=== PATIENT | female | born 1965 | race Caucasian/White ===

== ENCOUNTER → 2016-07-26 | Outpatient (CLI) | payer BC ==
[~2016-07-26] MED LIST: LEVO75TA PO; WLLUNK PO
--- NOTE | 2016-07-26 15:21 | MAMMOGRAPHY REPORT ---
UNILATERAL RIGHT DIGITAL DIAGNOSTIC MAMMOGRAM TOMOSYNTHESIS WITH CAD AND TARGETED RIGHT ULTRASOUND: 07/26/2016 CLINICAL HISTORY: 51-year-old woman presents for follow-up in the right breast for an area of possib le architectural distortion seen in the lateral breast on the CC view that effaced with additional s upplemental imaging. She also presents for repeat evaluation of multiple benign-appearing cysts and , located cysts identified throughout the right breast on prior ultrasound. TECHNIQUE: Right breast CC and MLO GE digital and tomosynthesis images, spot magnification right CC and ML views were obtained. Current study was also evaluated with a Computer Aided Detection (CAD) s ystem. COMPARISON: Comparison is made to exams dated: 01/27/2016 mammogram, 01/14/2016 mammogram, 01/12/2015 m ammogram, 01/08/2014 mammogram, 04/25/2012 mammogram, and 09/10/2010 ultrasound - [facility]. BREAST COMPOSITION: There are scattered areas of fibroglandular density in the right breast. FINDINGS: There is no evidence of architectural distortion in the lateral right breast in the area o f possible architectural distortion seen on the 01/14/2016 screening mammogram. Currently, there is no new suspicious mass or focal area of architectural distortion. However, there are new grouped m icrocalcifications in the lower inner middle one third of the right breast, for which additional spo t magnification views were obtained. There is a small 2 mm grouping of smudgy or amorphous microcalcifications on the CC view that change shape and layer on the spot magnification ML view, confirming benign milk of calcium. A few other benign-appearing calcifications are scattered in the visualized right breast. In particular, there are stable microcalcifications projecting over the right pectoralis muscle on the MLO view. Real-time high resolution sonographic evaluation was performed throughout the right breast to reeval uate the probable fibrocystic changes identified on prior ultrasound. Numerous anechoic cysts are s cattered throughout the right breast. There are a few, located cysts versus benign appearing solid masses in the 1:00 right breast, measuring 4.0 mm. Another possible, located cyst versus benign-ridge earing solid masses identified in the 7:00 right breast, 2 cm from the nipple, measuring 2.7 mm. A hypoechoic cystic versus solid mass in the 9:00 right breast, 3 cm from the nipple measures 3.4 mm a nd has not significantly changed comparing to the 01/27/2016 ultrasound. A cyst with reticular inte rnal septations is again seen in the 11:00 right breast, 1 cm from the nipple, measuring 9.1 x 4.6 x 10.4 mm. These findings are compatible with benign fibrocystic changes. There is no evidence of a suspicious solid mass identified in the right breast on ultrasound. IMPRESSION: ACR BI-RADS CATEGORY 2: BENIGN, TARGETED ULTRASOUND ACR BI-RADS CATEGORY 2: BENIGN There is no persistent architectural distortion in the lateral right breast, confirming normal overl apping fibrolinear markings. No other suspicious mammographic or sonographic abnormality or evidenc e of malignancy is identified. There are benign fibrocystic changes seen throughout the right breas t on ultrasound. Return to annual mammogram screening schedule is recommended. The patient has bee n verbally notified of the results. Approximately 10% of breast cancers are not detected with mammography. A negative mammographic repor t should not delay biopsy if a clinically suggestive mass is present. Sridevi Mcdonough M.D. ay/:07/26/2016 11:34:42 Qa Reviewer: Macarena LOPEZ)(Sara), [facility] letter sent: Normal 1/2 BI-RADS Code: ACR BI-RADS Category 2: Benign Ultrasound BI-RADS: ACR BI-RADS Category 2: Benign
== END | disposition home or self-care (01) ==
LOC: C.MAMM 09:15
DX: R92.8 Other abnormal and inconclusive findings on diagnostic imaging of breast (principal); N60.01 Solitary cyst of right breast

== ENCOUNTER → 2017-01-09 | Outpatient (CLI) | payer BC ==
--- NOTE | 2017-01-09 12:42 | DIAGNOSTIC IMAGING REPORT ---
LEFT LOWER EXT JOINT WITHOUT CLINICAL HISTORY: 51 years-old Female presenting with LEFT KNEE PAIN along the medial aspect, pain for one to 2 months with no known injury, no history of cancer or prior surgery. TECHNIQUE: Multisequence, multiplanar MR imaging of the left knee was performed without the use of intravenous contrast. IV contrast: None. COMPARISON: None. FINDINGS: Localizer images: Unremarkable. Minimal bony edema along the anterior tibia in the intercondylar notch. Increased signal and minimal irregularity within the mid to posterior weightbearing portion of the articular cartilage of the medial femoral condyle suggesting grade 1 cartilage injury. Focal fissuring along the median prominence of the patellar articular cartilage extending less than 50% into the thickness consistent with grade 2 cartilage injury. Additionally, focal articular cartilage abnormality within the medial patellar facet measuring 4 to 5 mm in width and involving at least 50% thickness of the articular cartilage. Medial and lateral menisci intact, although bony edema is noted at the root of the medial meniscus. Anterior and posterior cruciate ligaments intact. Cystic change noted in the distal fibers of the anterior cruciate ligament. Medial collateral ligament intact although minimal increased signal intensity is noted both superficial and deep to the MCL. Lateral collateral ligament including the biceps femoris tendon, fibular collateral ligament, popliteal tendon, and iliotibial band intact. Small knee joint effusion. Trace popliteal cyst. Quadriceps and patellar tendons intact. IMPRESSION: 1. Bony edema at the anterior tibia at the intercondylar notch with associated cystic change in the distal fibers of the anterior cruciate ligament. This is compatible with degenerative change. No complete ACL tear. 2. Suggestion of grade 1 sprain of the MCL. 3. No meniscal tear is evident. 4. Small knee joint effusion. 5. Minimal cartilage injury at the mid to posterior weightbearing portion of the medial femoral condyle and more significant cartilage injury at the patella as described above. Electronically signed by: Don Rascon M.D. 01/09/2017 12:41 PM Dictated Date/Time: 01/09/2017 12:30 PM
== END | disposition home or self-care (01) ==
LOC: C.MRI 11:00
DX: M25.562 Pain in left knee (principal); M25.462 Effusion, left knee

== ENCOUNTER → 2017-01-17 | Outpatient (CLI) | payer BC ==
--- NOTE | 2017-01-18 07:56 | MAMMOGRAPHY REPORT ---
BILATERAL DIGITAL SCREENING MAMMOGRAM TOMOSYNTHESIS WITH CAD: 01/17/2017 CLINICAL HISTORY: Routine screening. Patient has no complaints. TECHNIQUE: Breast tomosynthesis in addition to standard 2D mammography was performed. Current study was also evaluated with a Computer Aided Detection (CAD) system. COMPARISON: Comparison is made to exams dated: 07/26/2016 ultrasound, 07/26/2016 mammogram, 01/27/2016 ult rasound, 01/27/2016 mammogram, 01/14/2016 mammogram, and 01/12/2015 mammogram - [facility]. BREAST COMPOSITION: There are scattered areas of fibroglandular density in both breasts. FINDINGS: There is stable nodularity in the medial left breast, and stable asymmetries in the right u pper outer quadrant. Stable scattered and grouped benign-appearing microcalcifications. No new susp icious mass, architectural distortion or cluster of microcalcifications is seen. IMPRESSION: ACR BI-RADS CATEGORY 1: NEGATIVE There is no mammographic evidence of malignancy. A 1 year screening mammogram is recommended. The pa tient will receive written notification of the results. Approximately 10% of breast cancers are not detected with mammography. A negative mammographic report should not delay biopsy if a clinically suggestive mass is present. Sridevi Mcdonough M.D. ay/:01/17/2017 16:23:09 Equipment Engineer: Nicky SANTIAGO(David)(M), [facility] letter sent: Normal 1/2 BI-RADS Code: ACR BI-RADS Category 1: Negative
== END | disposition home or self-care (01) ==
LOC: C.MAMM 15:18
DX: Z12.31 Encounter for screening mammogram for malignant neoplasm of breast (principal)

== ENCOUNTER → 2017-12-28 | Outpatient (CLI) | payer OTHER | END | disposition home or self-care (01) | LOC: C.PAPS 18:14 | PROVIDERS: ATTEND Obstetrics & Gynecology | DX: Z12.4 Encounter for screening for malignant neoplasm of cervix (principal) ==